=== PATIENT | male | born 1995 | race African-American/Black ===

== ENCOUNTER 2020-12-16 11:30 | Emergency (ER) | payer MEDICAID ==
[~2020-12-16] VITALS: Ht 172.7 cm; Wt 77.0 kg
[2020-12-16] MEDS ORDERED: LIDOCAINE HCL 1% 20ML VIAL (Pyxis) INJ INFIL ONE (13:15)
[2020-12-16] MEDS ORDERED: CEFTRIAXONE SODIUM 500 MG/VIAL IM ONE (13:15)
[2020-12-16] MEDS ORDERED: AZITHROMYCIN 500 MG TABLET PO ONE (13:15)
[2020-12-16 13:50] LABS: CLARITY URINE CLEAR (CLEAR); COLOR URINE YELLOW (YELLOW); KETONES URINE TRACE (NEGATIVE); LEUKOCYTE ESTERASE URINE NEGATIVE (NEGATIVE); NITRITE URINE NEGATIVE (NEGATIVE); OCCULT BLOOD URINE NEGATIVE (NEGATIVE); PH URINE 7.5 (4.5-8.0); PROTEIN URINE NEGATIVE (NEGATIVE); SPECIFIC GRAVITY URINE 1.014 (1.005-1.030)
[2020-12-16 14:10] VITALS: BP 134/73
[2020-12-18 07:09] LABS: NEISSERIA GONORRHOEAE NAA Negative (Negative)
== END 2020-12-16 14:13 | disposition home or self-care (01) ==
LOC: ER 11:30
DX: Z20.2 Contact with and (suspected) exposure to infections with a predominantly sexual mode of transmission (principal); R30.0 Dysuria; N34.2 Other urethritis
CPT/HCPCS: 81003; 87491; 87591; 96372; 99283; J0696; J3490